=== PATIENT | female | born 1970 | race Caucasian/White ===

== ENCOUNTER 2023-03-26 08:09 | Emergency (ER) | payer MEDICAID, OTHER ==
[~2023-03-26] VITALS: Ht 154.9 cm; Wt 66.0 kg
[2023-03-26 08:11] VITALS: O2SAT 99
[2023-03-26] MEDS ORDERED: KETOROLAC 60MG/2ML VIAL IM STA (08:58)
[2023-03-26 09:54] LABS: CLARITY URINE CLOUDY (CLEAR); COLOR URINE DARK YELLOW (YELLOW); GLUCOSE URINE NEGATIVE (NEGATIVE); KETONES URINE TRACE (NEGATIVE); LEUKOCYTE ESTERASE URINE NEGATIVE (NEGATIVE); NITRITE URINE NEGATIVE (NEGATIVE); OCCULT BLOOD URINE 3+ (NEGATIVE); PH URINE 5.5 (4.5-8.0); PROTEIN URINE 2+ (NEGATIVE); SPECIFIC GRAVITY URINE 1.024 (1.005-1.030)
[2023-03-26 09:56] LABS: SQUAMOUS EPITHELIAL CELL URINE 2+ /lpf (RARE/1+); YEAST URINE NONE SEEN
[2023-03-26] MEDS ORDERED: CYCL10TA21 MT (10:08)
[2023-03-26] MEDS ORDERED: IBUP-2029 MT (10:08)
[2023-03-26 10:18] LABS: BACTERIA URINE 4+
[2023-03-26 10:19] LABS: WBC URINE 0-2 /hpf (0-2)
[2023-03-26 10:24] VITALS: BP 135/85; PULSE 85; RESP 16; TEMP 98.5
== END 2023-03-26 10:24 | disposition home or self-care (01) ==
LOC: ER 08:09
DX: M54.50 Low back pain, unspecified (principal); Z98.890 Other specified postprocedural states
CPT/HCPCS: 81003; 96372; 99283; J1885; Z7610